=== PATIENT | male | born 1960 | race Caucasian/White ===

== ENCOUNTER 2016-10-19 09:15 | Emergency (ER) | payer OTHER ==
[~2016-10-19] VITALS: Ht 175.3 cm; Wt 76.0 kg
[2016-10-19 09:20] VITALS: TEMP 37; Ht 175.3 cm; Wt 76.0 kg
[2016-10-19] MEDS ORDERED: LISI-461 PO (09:48)
[2016-10-19] MEDS ORDERED: LEVO100T PO (09:48)
[2016-10-19 09:50] LABS: BASO % 0.5 %; BASO ABS # 0.03 K/uL (0-0.2); COMPLETE YES; EOS % 3.4 %; LYMPH % 20.8 %; LYMPH ABS # 1.24 K/uL (1.2-3.4); MEAN CORPUSCULAR HEMOGLOBIN 31.2 pg (25-34); MEAN CORPUSCULAR HGB CONC 35.9 g/dl (32-36); MEAN PLATELET VOLUME 10.6 fL (7.4-10.4); MONO % 7.6 %; NEUT % 67.7 %; PLATELET COUNT 178 K/uL (130-400); RED BLOOD COUNT 5.29 M/uL (4.7-6.1); WHITE BLOOD COUNT 5.95 K/uL (4.8-10.8)
[2016-10-19 10:03] LABS: URINE APPEARANCE CLEAR (CLEAR); URINE BILIRUBIN NEG (NEG); URINE COLOR YELLOW; URINE NITRITE NEG (NEG); URINE PH 6.5 (4.5-7.5); URINE SPECIFIC GRAVITY 1.008 (1.000-1.030); UROBILINOGEN NEG (NEG)
--- NOTE | 2016-10-19 10:06 | DIAGNOSTIC IMAGING REPORT ---
CHEST ONE VIEW PORTABLE CLINICAL HISTORY: Fever, sepsis, atypical chest pain, palpitations. COMPARISON STUDY: 06/27/2016 FINDINGS: The cardiac and mediastinal contours are normal. There is no evidence of focal pulmonary consolidation. There is no evidence of failure. No pleural effusions are visualized.[ IMPRESSION: No active disease in the chest. Electronically signed by: Oscar Whittaker M.D. 10/19/2016 10:04 AM
[2016-10-19 10:08] LABS: ALT/SGPT 48 U/L (12-78); BLOOD UREA NITROGEN 10 mg/dl (7-18); CALCIUM 9.3 mg/dl (8.5-10.1); CARBON DIOXIDE 27 mmol/L (21-32); CHLORIDE 105 mmol/L (98-107); CREATININE 0.97 mg/dl (0.60-1.40); GLUCOSE 111 mg/dl (70-99); POTASSIUM 3.9 mmol/L (3.5-5.1); SODIUM 142 mmol/L (136-145)
[2016-10-19 10:11] LABS: PARTIAL THROMBOPLASTIN RATIO 1.1; PROTHROMBIN TIME (PATIENT) 10.5 SECONDS (9.0-12.0)
[2016-10-19 10:14] LABS: MANUAL MICROSCOPIC REQUIRED? NO; REVIEW REQ? NO
[2016-10-19 10:19] LABS: ALKALINE PHOSPHATASE 66 U/L (45-117); AST/SGOT 28 U/L (15-37); CKMB/CK RATIO 0.8 (0-3.0)
--- NOTE | 2016-10-19 10:31 | EMERGENCY ROOM VISIT NOTE ---
History Report prepared by Margaritoibrussel: Yancy Erazo Under the Supervision of: Dr. Hill Forbes D.O. First contact with patient: 09:25 Chief Complaint: CHEST PAIN Stated Complaint: CHEST PAIN,HEART PALPATATIONS History of Present Illness The patient is a 56 year old male who presents to the Emergency Room with complaints of resolved palpitations that started this morning around 0300 or 0400. The palpitations stopped around 0800. He felt his pulse when the palpitations were occurring and he states that it didn't feel like his heart was racing or skipping any beats. The patient texted Dr. Andrade - Cardiology and he said to come into the ED. He states that he has experienced 4-5 episodes of waking up around 0300 with palpitations. The episodes typically last for 1.5 hours. He states that he experiences some chest pain when he has the palpitations. The palpitations seem to be correlated to when he drinks alcohol the night before. He had a stress test and echocardiogram done in July and they were unremarkable. The patient has a history of GERD that he treats on his own. He states that his dad has a history of tachycardia. Source of History: patient Onset: this morning [id number] Position: chest Quality: other (palpitations) Timing: resolved Associated Symptoms: + chest pain Review of Systems See HPI for pertinent positives & negatives. A total of 10 systems reviewed and were otherwise negative. Past Medical & Surgical Medical Problems: (1) GERD (gastroesophageal reflux disease) Family History Cancer Hypertension Social History Marital Status: Housing Status: lives with family Occupation Status: employed Current/Historical Medications Scheduled Levothyroxine Sodium (Synthroid), 100 MCG PO DAILY Lisinopril (Lisinopril), 10 MG PO DAILY Allergies Coded Allergies: Sulfa Antibiotics (Unverified Allergy, Intermediate, RASH, 10/19/16) Uncoded Allergies: SULFA (Allergy, Mild, RASH, 09/17/10) Physical Exam Vital Signs Date Time Temp Pulse Resp B/P Pulse Ox O2 Delivery O2 Flow Rate FiO2 10/19/16 09:56 98 Room Air 10/19/16 09:32 73 10/19/16 09:20 37.0 77 20 142/100 98 Room Air Physical Exam CONSTITUTIONAL/VITAL SIGNS: Reviewed / noted above. GENERAL: Non-toxic in appearance. INTEGUMENTARY: Warm, dry, and [place]. HEAD: Normocephalic. EYES: without scleral icterus or trauma. ENT/OROPHARYNX: clear and moist. LYMPHADENOPATHY/NECK: Is supple without lymphadenopathy or meningismus. RESPIRATORY: Lungs clear and equal. CARDIOVASCULAR: Regular rate and rhythm. GI/ABDOMEN: Soft and nontender. No organomegaly or pulsatile mass. No rebound or guarding. Normal bowel sounds. EXTREMITIES: Warm and well perfused. BACK: No CVA tenderness. NEUROLOGICAL: Intact without focal deficits. PSYCHIATRIC: normal affect. MUSCULOSKELETAL: Normally developed with good muscle tone. Medical Decision & Procedures ER Provider Diagnostic Interpretation: X ray results and stated below per my interpretation and radiology interpretation. CHEST ONE VIEW PORTABLE CLINICAL HISTORY: Fever, sepsis, atypical chest pain, palpitations. COMPARISON STUDY: 06/27/2016 FINDINGS: The cardiac and mediastinal contours are normal. There is no evidence of focal pulmonary consolidation. There is no evidence of failure. No pleural effusions are visualized.[ IMPRESSION: No active disease in the chest. Electronically signed by: Oscar Whittaker M.D. 10/19/2016 10:04 AM Laboratory Results 10/19/16 09:25 Red Blood Count 5.29, Mean Corpuscular Volume 87.0, Mean Corpuscular Hemoglobin 31.2, Mean Corpuscular Hemoglobin Concent 35.9, Mean Platelet Volume 10.6, Neutrophils (%) (Auto) 67.7, Lymphocytes (%) (Auto) 20.8, Monocytes (%) (Auto) 7.6, Eosinophils (%) (Auto) 3.4, Basophils (%) (Auto) 0.5, Neutrophils # (Auto) 4.03, Lymphocytes # (Auto) 1.24, Monocytes # (Auto) 0.45, Eosinophils # (Auto) 0.20, Basophils # (Auto) 0.03 10/19/16 09:25 Test 10/19/16 09:25 10/19/16 09:37 White Blood Count 5.95 K/uL (4.8-10.8) Red Blood Count 5.29 M/uL (4.7-6.1) Hemoglobin 16.5 g/dL (14.0-18.0) Hematocrit 46.0 % (42-52) Mean Corpuscular Volume 87.0 fL (80-100) Mean Corpuscular Hemoglobin 31.2 pg (25-34) Mean Corpuscular Hemoglobin Concent 35.9 g/dl (32-36) Platelet Count 178 K/uL (130-400) Mean Platelet Volume 10.6 fL (7.4-10.4) Neutrophils (%) (Auto) 67.7 % Lymphocytes (%) (Auto) 20.8 % Monocytes (%) (Auto) 7.6 % Eosinophils (%) (Auto) 3.4 % Basophils (%) (Auto) 0.5 % Neutrophils # (Auto) 4.03 K/uL (1.4-6.5) Lymphocytes # (Auto) 1.24 K/uL (1.2-3.4) Monocytes # (Auto) 0.45 K/uL (0.11-0.59) Eosinophils # (Auto) 0.20 K/uL (0-0.5) Basophils # (Auto) 0.03 K/uL (0-0.2) RDW Standard Deviation 40.6 fL (36.4-46.3) RDW Coefficient of Variation 12.7 % (11.5-14.5) Immature Granulocyte % (Auto) 0.0 % Immature Granulocyte # (Auto) 0.00 K/uL (0.00-0.02) Prothrombin Time 10.5 SECONDS (9.0-12.0) Prothromb Time International Ratio 1.0 (0.9-1.1) Activated Partial Thromboplast Time 29.0 SECONDS (21.0-31.0) Partial Thromboplastin Ratio 1.1 Anion Gap 10.0 mmol/L (3-11) Est Creatinine Clear Calc Drug Dose 83.1 ml/min Estimated GFR () 99.3 Estimated GFR (Non- 85.7 BUN/Creatinine Ratio 10.0 (10-20) Calcium Level 9.3 mg/dl (8.5-10.1) Total Bilirubin 0.7 mg/dl (0.2-1) Direct Bilirubin 0.2 mg/dl (0-0.2) Aspartate Amino Transf (AST/SGOT) 28 U/L (15-37) Alanine Aminotransferase (ALT/SGPT) 48 U/L (12-78) Alkaline Phosphatase 66 U/L (45-117) Total Creatine Kinase 120 U/L (39-308) Creatine Kinase MB 0.9 ng/ml (0.5-3.6) Creatine Kinase MB Ratio 0.8 (0-3.0) Troponin I < 0.015 ng/ml (0-0.045) Total Protein 7.6 gm/dl (6.4-8.2) Albumin 3.8 gm/dl (3.4-5.0) Lipase 150 U/L (73-393) Thyroid Stimulating Hormone (TSH) 1.780 uIu/ml (0.300-4.500) Urine Color YELLOW Urine Appearance CLEAR (CLEAR) Urine pH 6.5 (4.5-7.5) Urine Specific [place] 1.008 (1.000-1.030) Urine Protein NEG (NEG) Urine Glucose (UA) NEG (NEG) Urine Ketones NEG (NEG) Urine Occult Blood NEG (NEG) Urine Nitrite NEG (NEG) Urine Bilirubin NEG (NEG) Urine Urobilinogen NEG (NEG) Urine Leukocyte Esterase NEG (NEG) Laboratory results as stated above per my review. ECG Indication: palpitations Rate (beats per minute): 68 Rhythm: normal sinus Findings: T-wave inversion (Anterolateral), no acute ischemic change Comparison ECG Date: 06/27/2016 Change: no significant change ED Course 0925: Previous medical records were reviewed. The patient was evaluated in room C7. A complete history and physical examination was performed. 1031: On reevaluation, the patient is doing well. I discussed the results and findings with the patient. He verbalized agreement of the treatment plan. He was discharged home. Medical Decision Differential includes acute myocardial infarction, acute coronary syndrome, myocarditis, pericarditis, pericardial effusions /tamponad, esophageal perforation, thoracic aortic dissection, pulmonary embolism, pneumonia, pneumothorax, pancreatitis, shingles, acute cholecystitis, perforated abdominal viscus. This is a 48-year-old male who presents to the ED with a chief complaint of fluttering/palpitations per the patient states that he awoke at 4 AM with a sensation of palpitations. He states that he checked his pulse and his heart rate is around 70. It felt regular. 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 The patient has had at least 4 other episodes similar to this. He states that it seems to occur in a close proximity having consumption of alcohol. The patient currently is not having any symptoms. His vital signs are stable. His physical exam was normal. A CBC is normal. Complete metabolic panel is normal. Troponin is negative. TSH is normal. EKG shows a sinus rhythm. There are some chronic changes. No acute ischemic changes. There is no dysrhythmia. Chest x-ray was negative for acute disease. The patient was told the results of the test. He is felt to be stable for discharge and outpatient follow-up. Impression Primary Impression: Palpitations Scribe Attestation The scribe's documentation has been prepared under my direction and personally reviewed by me in its entirety. I confirm that the note above accurately reflects all work, treatment, procedures, and medical decision making performed by me. Departure Information Dispostion Home / Self-Care Referrals Jorge Arevalo Jr,D.O. (PCP) Forms HOME CARE DOCUMENTATION FORM, IMPORTANT VISIT INFORMATION Patient Instructions A Signature Page, ED Palpitations, [facility] Additional Instructions Follow-up with your doctor for further care and evaluation in 1-4 days. Return to the emergency department for worsening or new symptoms or any concerns. You have been examined and treated today on an emergency basis only. This is not a substitute for, or an effort to provide, complete comprehensive medical care. It is impossible to recognize and treat all injuries or illnesses in a single emergency department visit. It is therefore important that you follow up closely with your doctor. Call as soon as possible for an appointment.
[2016-10-19 10:51] VITALS: BP 133/77; PULSE 62; O2SAT 96
== END 2016-10-19 10:52 | disposition home or self-care (01) ==
LOC: C.EDB 09:16 → C.EDC 10:52
DX: R00.2 Palpitations (principal); K21.9 Gastro-esophageal reflux disease without esophagitis; Z79.899 Other long term (current) drug therapy

== ENCOUNTER 2017-05-16 01:09 | Emergency (ER) | payer OTHER ==
[~2017-05-16] VITALS: Ht 175.3 cm; Wt 76.0 kg
[~2017-05-16 01:09] MED LIST: LEVO100T PO; LISI-461 PO
[2017-05-16 01:21] VITALS: BP 138/94; TEMP 36.6; Ht 175.3 cm; Wt 76.0 kg
[2017-05-16] MEDS ORDERED: PROPARACAINE HCL 0.5% OP SOLN 15 ML BTL ONE (01:39)
[2017-05-16] MEDS ORDERED: CIPROFLOXACIN HCL 0.3% OP SOLN 2.5 ML BTL OP STA (02:17)
[2017-05-16 02:41] VITALS: PULSE 70; O2SAT 98
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
== END 2017-05-16 02:42 | disposition home or self-care (01) ==
LOC: C.EDB 01:10 → C.EDA 02:42
DX: S05.01XA Injury of conjunctiva and corneal abrasion without foreign body, right eye, initial encounter (principal); X58.XXXA Exposure to other specified factors, initial encounter; H11.421 Conjunctival edema, right eye; I10 Essential (primary) hypertension; E03.9 Hypothyroidism, unspecified; K21.9 Gastro-esophageal reflux disease without esophagitis; Z98.890 Other specified postprocedural states; Z88.2 Allergy status to sulfonamides

== ENCOUNTER → 2017-07-22 | Outpatient (CLI) | payer OTHER ==
[2017-07-22 09:39] LABS: BASO % 0.9 %; BASO ABS # 0.04 K/uL (0-0.2); COMPLETE YES; EOS % 4.1 %; HEMATOCRIT 43.3 % (42-52); IG% 0.2 %; LYMPH % 34.6 %; LYMPH ABS # 1.62 K/uL (1.2-3.4); MEAN CELL VOLUME 88.5 fL (80-100); MEAN CORPUSCULAR HEMOGLOBIN 31.1 pg (25-34); MEAN CORPUSCULAR HGB CONC 35.1 g/dl (32-36); MEAN PLATELET VOLUME 11.2 fL (7.4-10.4); MONO % 6.4 %; NEUT % 53.8 %; PLATELET COUNT 233 K/uL (130-400); RED BLOOD COUNT 4.89 M/uL (4.7-6.1); WHITE BLOOD COUNT 4.68 K/uL (4.8-10.8)
[2017-07-22 09:59] LABS: BLOOD UREA NITROGEN 10 mg/dl (7-18); BUN/CREATININE RATIO 10.1 (10-20); CARBON DIOXIDE 28 mmol/L (21-32); CHLORIDE 104 mmol/L (98-107); CHOLESTEROL 231 mg/dl (0-200); GLUCOSE 98 mg/dl (70-99); SODIUM 139 mmol/L (136-145)
[2017-07-22 10:09] LABS: CHOLESTEROL/HDL RATIO 2.7; HDL CHOLESTEROL 87 mg/dl; LDL CHOLESTEROL CALCULATED 128 mg/dl; PROSTATE SPECIFIC ANTIGEN 0.993 ng/ml (0.000-4.000); TRIGLYCERIDES 82 mg/dl (0-150); VERY LOW DENSITY LIPOPROT CALC 16 mg/dl
== END | disposition home or self-care (01) ==
LOC: C.LAB 06:50
DX: I10 Essential (primary) hypertension (principal); E78.5 Hyperlipidemia, unspecified; E03.9 Hypothyroidism, unspecified; E55.9 Vitamin D deficiency, unspecified

== ENCOUNTER → 2017-09-07 | Outpatient (CLI) | payer OTHER ==
[2017-09-07 20:12] LABS: LYME DISEASE AB IGG NEG (NEG); LYME DISEASE AB IGM NEG (NEG)
== END | disposition home or self-care (01) ==
LOC: C.LAB 18:39
PROVIDERS: ATTEND Chiropractor
DX: A69.20 Lyme disease, unspecified (principal)

== ENCOUNTER → 2017-09-20 | Outpatient (CLI) | payer OTHER ==
--- NOTE | 2017-09-20 18:58 | DIAGNOSTIC IMAGING REPORT ---
R TOE(S) MIN 2 VIEWS CLINICAL HISTORY: RT FIRST TOE FRACTURE COMPARISON: None. DISCUSSION: There is a nondisplaced oblique/spiral fracture involving the proximal phalanx of the great toe with extension to the distal articular surface. There is no dislocation. There are moderate osteoarthritic changes involving the first metatarsal phalangeal joint. IMPRESSION: Nondisplaced oblique/spiral fracture of the proximal phalanx of the great toe with extension to the distal articular surface Electronically signed by: Oscar Whittaker M.D. 09/20/2017 6:57 PM Dictated Date/Time: 09/20/2017 6:56 PM
== END | disposition home or self-care (01) ==
LOC: C.RAD 18:24
PROVIDERS: ATTEND Chiropractor
DX: S92.414A Nondisplaced fracture of proximal phalanx of right great toe, initial encounter for closed fracture (principal); X58.XXXA Exposure to other specified factors, initial encounter

== ENCOUNTER → 2017-10-05 | Outpatient (CLI) | payer OTHER ==
--- NOTE | 2017-10-05 19:20 | DIAGNOSTIC IMAGING REPORT ---
R TOE(S) MIN 2 VIEWS CLINICAL HISTORY: Toe pain. Fracture. COMPARISON: Right first toe radiographs September 20, 2017. FINDINGS: There has been no change in alignment of the comminuted nondisplaced fracture within the proximal phalanx of the right first toe since prior exam of September 20, 2017. Extension to the interphalangeal joint is noted. 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 There is right first toe soft tissue swelling. IMPRESSION: No change in alignment of the nondisplaced comminuted oblique fracture of the proximal phalanx of the right first toe since exam of September 20, 2017. No significant interval healing. Electronically signed by: Casey Coe M.D. 10/05/2017 7:18 PM Dictated Date/Time: 10/05/2017 7:17 PM
== END | disposition home or self-care (01) ==
LOC: C.RAD1850 18:01
PROVIDERS: ATTEND Chiropractor Orthopedic
DX: S92.414A Nondisplaced fracture of proximal phalanx of right great toe, initial encounter for closed fracture (principal); X58.XXXA Exposure to other specified factors, initial encounter